=== PATIENT | male | born 1960 | race Hispanic/Latino ===

== ENCOUNTER 2023-03-09 13:42 | Emergency (ER) | payer MEDICAID, OTHER ==
[~2023-03-09] VITALS: Ht 167.6 cm; Wt 82.6 kg
[2023-03-09 20:00] LABS: BASOPHILS # (AUTO) 0.05 K/uL (0.00-0.20); BASOPHILS % (AUTO) 0.5 % (0.0-5.0); EOSINOPHILS # (AUTO) 0.38 K/uL (0.00-0.70); HEMATOCRIT 40.3 % (42-54); IMMATURE GRANULOCYTE ABSOLUTE 0.04 K/uL (0-1); LYMPHOCYTES # (AUTO) 1.9 K/uL (1.0-4.8); LYMPHOCYTES % (AUTO) 20.1 % (21.0-51.0); MEAN CORPUSCULAR HEMOGLOBIN 28.5 pg (27.0-33.0); MEAN CORPUSCULAR VOLUME 86.3 fL (79-99); MONOCYTES # (AUTO) 0.8 K/uL (0.1-1.0); NEUTROPHILS # (AUTO) 6.3 K/uL (1.8-7.7); PLATELET COUNT (AUTO) 227 K/uL (130-400); RED BLOOD CELL COUNT(AUTO) 4.67 MIL/uL (4.50-6.20); RED CELL DISTRIBUTION WIDTH 12.8 % (11.0-15.5); WHITE BLOOD COUNT (AUTO) 9.4 K/uL (4.8-10.8)
[2023-03-09 20:25] LABS: CREATININE 1.3 mg/dL (0.5-1.5); POTASSIUM 4.2 mmol/L (3.5-5.1)
[2023-03-09] MEDS ORDERED: LABETALOL 20MG VIAL IV ONE (20:30)
[2023-03-09] MEDS ORDERED: FENO145T26 PO (21:08)
[2023-03-09] MEDS ORDERED: POTA20PA32 PO (21:08)
[2023-03-09] MEDS ORDERED: GABA-529 PO (21:08)
[2023-03-09] MEDS ORDERED: RIVA20TA PO (21:08)
[2023-03-09] MEDS ORDERED: MIRT45TA83 PO (21:08)
[2023-03-09] MEDS ORDERED: BUSP15TA3 PO (21:08)
[2023-03-09] MEDS ORDERED: HYDR-3420 PO (21:08)
[2023-03-09] MEDS ORDERED: ARIP2TAB20 PO (21:08)
[2023-03-09] MEDS ORDERED: IRBE300T18 PO (21:08)
[2023-03-09] MEDS ORDERED: PRAV80TA21 PO (21:08)
[2023-03-09] MEDS ORDERED: NITR0.4T50 SL (21:08)
[2023-03-09] MEDS ORDERED: FURO40TA5 PO (21:08)
[2023-03-09] MEDS ORDERED: ESCI-8 PO (21:08)
[2023-03-09] MEDS ORDERED: PRED10TA3 PO (21:08)
[2023-03-09] MEDS ORDERED: HYDRALAZINE 20MG/ML VIAL IV ONE (21:30)
[2023-03-09 21:52] LABS: B-TYPE NATRIURETIC PEPTIDE 73 pg/mL (0-100)
[2023-03-09 22:20] VITALS: BP 184/79; PULSE 87; RESP 20; O2SAT 100
== END 2023-03-09 22:29 | disposition home or self-care (01) ==
LOC: EDH 13:42
DX: I16.0 Hypertensive urgency (principal); R60.0 Localized edema; M79.671 Pain in right foot; E11.9 Type 2 diabetes mellitus without complications; E78.00 Pure hypercholesterolemia, unspecified; Z79.899 Other long term (current) drug therapy; Z98.890 Other specified postprocedural states
CPT/HCPCS: 99285; 93970; 96374; 71045; 96375; 80048; 83880; 85025; 85378; 36415; J0360; J3490